=== PATIENT | male | born 1985 | race Caucasian/White ===

== ENCOUNTER 2024-06-01 10:34 | Emergency (ER) | payer OTHER, SELFPAY ==
[2024-06-01 10:38] VITALS: BP 130/76; PULSE 109; RESP 14; TEMP 36.6; O2SAT 99; BMI 24.7
--- NOTE | 2024-06-01 11:16 | PC.NURSE ---
Methadone dose confirmed. Clinic stated he was last dose on 05/28 but was given 5 days of take home doses - he should still have 2 bottles left
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
[2024-06-01] MEDS: methADONE HCl 20 MG/2 ML ORAL.CONC 110 MG PO (13:08)
[2024-06-01 13:18] VITALS: BP 130/76; PULSE 109; RESP 14; TEMP 36.6; O2SAT 99
== END 2024-06-01 13:21 | disposition home or self-care (01) ==
PROVIDERS: Emergency Provider Emergency Medicine Emergency Medical Services
DX: Z76.0 Encounter for issue of repeat prescription (principal)
CPT/HCPCS: 99283

== ENCOUNTER 2024-11-05 06:43 | Emergency (ER) | payer OTHER, SELFPAY ==
[2024-11-05 06:46] VITALS: BP 143/81; PULSE 104; RESP 18; TEMP 36.8; O2SAT 100; BMI 20.5
--- OUTSIDE RECORDS SUMMARY | 2024-11-05 07:31 | XMS_ITS | Data Portability ---
Author Organization [place] [facility], , [place] Address [address] [place] [address] Assessment Encounter Date Assessment Date Assessment LastModified by Organization Details LastModified Time 12/03/2019 12/03/2019 34 Y/O PRESENTS SEEKING MAT INTERVENTION FOR OPIATE ABUSE. ADMITS TO USING HEROIN SINCE THE AGE OF 24. RECOVERY INTERVENTIONS HAS BEEN [facility] WITH SUBOXONE. DOSES RANGED 4-8 MG/DAILY. LAST SUBOXONE PRESCRIBED WAS 09/2018. DENIES IN-PATIENT DETOX/REHAB. HAS BEEN USING 10/2018 RELAPSED WITH HEROIN AND INTERMITTENT COCAINE (NASAL) REQUESTS TO OBTAIN RECOVERY, WITH SUBOXONE, AT [facility]. INSTRUCTED R/T CORRECT SELF-ADMIN OF SUBOXONE DISCUSSED PRECIPITATED W/D RISKS, SYMPTOMS, TIME FRAME, AND GRADUAL INDUCTION PROCESS. PATIENT VERBALIZES UNDERSTANDING, INCLUDING 24 HOUR OPIATE ABSTINENCE PRIOR TO SUBOXONE INDUCTION. DENIES OPIATE USE WITHIN THE LAST 24 HOURS. INDUCTION DOS WITH GRADUAL [address] DOS[address] TAKE [address] 12/02 F/U INDUCTION APPMT: 12/03 THE FOLLOWING SUBSTANCES LIST LAST OR CURRENT USE: - SUBOXONE: 09/2018 - HEROIN: 12/01 @ 5P - METHADONE: N/A - COCAINE: / - THC: occasional - BENZO: RARE - ALCOHOL:N/A - SMOKER: 1 PPD - COWS SCORE: 2 - NARCAN KIT PRESCRIBED - TRIGGERS THAT MOTIVATE TO USE: GETTING SICK, W/D - NO HX OF SUICIDAL IDEATION. CURRENTLY DENIES - HX OF HEP C: DENIES - INCARCERATION: NO Telemedicine Information: This telmed (audio & visual) appointment provided a MAT prescription. Time Start: 03:25 PM; Time End:03:53 PM Provider Location: home; Patient Location: office Telemedicine Consent Given (verbal): Y The patient's current phase of treatment is Induction phase, OUD. Assessment The patient does meet diagnostic criteria for opioid dependence. The patient is responding to treatment with buprenorphine at OBOT level of care at this phase of treatment. The patient does continue to be a good candidate for this level of care. LFT will be repeated per our clinical protocol. Urine drug testing is ordered today with medical necessity as below. Plan Recommendations for buprenorphine dosing today include continue same dose. Visit frequency recommendations include continue current frequency of visits. Treatment plan review or change TODAY includes continue current level of care. Discussed next step requirements for treatment plan based on response to treatment between now and next visit which will include no change. Referrals made today include substance abuse counseling. Prescription monitoring program is reviewed. If reviewed, I have identified agents prescribed to the patient in addition to any issued by our program; the patient is counseled regarding any risk of combining sedating agents. [email or web address] Not available 12/04/2019 08:16:27 12/04/2019 12/04/2019 - PRESENTS FOR INDUCTION F/U. REPORTS HOME INDUCTION TOOK PLACE W/O INCIDENT - PT ADMITS TO FEELING NORMAL WITH SUBOXONE @ 16 MG/DAILY - LOOKING AND FEELING BETTER. - UDS: + COCAINE, FENTANYL---CONFIRM ATION PENDING - NORBUP: PENDING - INITIAL LABS DUE - COUNSELING:REQUEST De GORDON--PT CASE SUBMITTED TO COUNSELING HUB - PLAN: WILL BEGIN WEEKLY MAT ASSESSMENTS, CONT BUP TREATMENTS AND F/U PRIYANKA COUNSELING. Telemedicine Information: This telmed (audio & visual) appointment provided a MAT prescription. Time Start: 04:30 PM; Time End:04:45 PM Provider Location: home; Patient Location: office Telemedicine Consent Given (verbal): Y The patient's current phase of treatment is Induction phase, OUD. Assessment Review of recent UDS and LCMS is unexpected. The patient does meet diagnostic criteria for opioid dependence. The patient is responding to treatment with buprenorphine at OBOT level of care at this phase of treatment. The patient does continue to be a good candidate for this level of care. LFT will be repeated per our clinical protocol. Urine drug testing is ordered today with medical necessity as below. Plan Recommendations for buprenorphine dosing today include continue same dose. Visit frequency recommendations include continue current frequency of visits. Treatment plan review or change TODAY includes continue current level of care. Discussed next step requirements for treatment plan based on response to treatment between now and next visit which will include no change. Referrals made today include substance abuse counseling. Prescription monitoring program is reviewed. If reviewed, I have identified agents prescribed to the patient in addition to any issued by our program; the patient is counseled regarding any risk of combining sedating agents. [email or web address] Not available 12/22/2019 12:19:35 Plan of Treatment Reminders Order Date Submit Date Provider Last Modified By Organization Details Last Modified Time Details Appointments None recorded. Lab CMP, serum or plasma [address], [place], [address], 0 14:56:07 CBC w/ diff [address], [place], [address], 0 14:56:07 gamma-gluta myl transferase (ggt), serum [address], [address] [place], [address], 0 14:56:08 hepatic function panel, serum [address], [address] [place], [address], 0 14:56:08 hepatitis A Ab, total, serum [address], [place], [address], 0 14:56:08 HBsAg (hepatitis B surface Ag), serum [address], [address] [place], [address], 0 14:56:08 PT/INR [address], [address] [place], [address], 0 14:56:08 drug screen, urine 2019 [facility], [address] [place], [address], 0 11:17:43 HIV 1+2 Ab + HIV1 p24 Ag, QL, rapid, immunoassay , serum or plasma or blood 2019 dee [email or web address] Not available 0 14:56:08 hepatitis C Ab, serum 2019 dee [email or web address] Not available 0 14:56:08 Referral None recorded. Procedures None recorded. Surgeries None recorded. Imaging None recorded. Medication Orders None recorded. Patient TargetsNo targets recorded. Patient Instructions Encounter Date Encounter Id Patient Instructions Last Modified By Organization Details Last Modified Time 12/03/2019 [id number] Abstain from opiates for 24 hours unless directed by provider; > If already taking buprenorphine, do not take a dose the day of the induction until you are in the office with your provider; > Comfort medications were recommended. If accepted, please take as prescribed to support your ability to abstain from opiates until your buprenorphine induction; > Keep your buprenorphine RX package closed until you are seen by your provider for induction unless otherwise directed; If you have problems abstaining from opiates, please call the office. As part of your individualized treatment plan and program requirement, you will need to bring your correct prescription bottle and all used and unused medication and counseling verification to each appointment; > Agree to participate in counseling and bring counseling verification to each appointment; > Agree to present for random visits; > Agree to not falsify your urine specimens. [email or web address] Not available 12/03/2019 15:29:42 Education provid ed at today's visit included: Review of patient's individualized treatment plan; Review of program policies: RX, visit, counseling and DATA compliance; Review medication administration technique; Discussion proper care of medication/safety/ lock box; Counseling re: trigger avoidance, relapse prevention and the importance of developing a sober network; Counseling re safe sex and control; Review risk of BZD and BUP, as well as ETOH; Counseling re: Discovery & Drop out prevention in early recovery. Not available 12/03/2019 15:29:42 12/04/2019 [id number] As part of your individualized treatment plan and program requirement, you will need to bring your correct prescription bottle and all used and unused medication and counseling verification to each appointment; > Agree to participate in counseling and bring counseling verification to each appointment; > Agree to present for random visits; > Agree to not falsify your urine specimens. [email or web address] Not available 12/04/2019 16:20:58 Education provid ed at today's visit included: Review of patient's individualized treatment plan; Continue comfort medication for the next few days as needed; Review of common and serious medication side effects; Review of program policies: RX, visit, counseling and DATA compliance; Review medication administration technique; Discussion proper care of medication/safety/ lock box; Counseling re: trigger avoidance, relapse prevention and the importance of developing a sober network; Counseling re safe sex and control; Review risk of BZD and BUP, as well as ETOH; Counseling re: Discovery & Drop out prevention in early recovery. Greater than 50% of today's visit spent face to face counseling and coordinating care. [email or web address] Not available 12/04/2019 16:20:58 Reason for Referral None Reported. Results Created Date Observation Date Name Description Value Unit Range Abnormal Flag Note LastModifiedBy Organization Detail LastModifiedTime 12/03/1912/03/2019 drug scree n, urine amphetamine NEGATI VE 100 Elect louisa velazco d by MISSY DURANT Not Available [facility] [place] [address] [place], [address], 12/04/2019 11:17:43 12/03/1912/03/2019 drug scree n, urine benzodiazepi ne NEGATI VE 100 Not Available [facility], [address], 12/04/2019 11:17:43 12/03/1912/03/2019 drug scree n, urine buprenorphin e NEGATI VE 100 abnormal Not Available [facility] [address] [place], [address], 12/04/2019 11:17:43 12/03/19 20 12/03/2019 drug scree n, urine cannabinoid NEGATI VE 100 Not Available [place] [address] [place], [address], 12/04/2019 11:17:43 12/03/19 20 12/03/2019 drug scree n, urine cocaine metab. POSITI VE 100 abnormal Not Available [place] [address] [place], [address], 12/04/2019 11:17:43 12/03/19 20 12/03/2019 drug scree n, urine methadone NEGATI VE 100 Not Available [place] [address] [place], [address], 12/04/2019 11:17:43 12/03/19 20 12/03/2019 drug scree n, urine opiates POSITI VE 100 abnormal Not Available [place] [address] [place], [address], 12/04/2019 11:17:43 12/03/19 20 12/03/2019 drug scree n, urine oxycodone NEGATI VE 100 Not Available [place] [address] [place], [address], 12/04/2019 11:17:43 12/03/19 20 12/03/2019 drug scree n, urine ethanol <10, <10 mg/dL <10 Not Available [place] [address] [place], [address], 12/04/2019 11:17:43 12/03/19 20 12/03/2019 drug scree n, urine fentanyl POSITI VE 100 high Not Available [place] [address] [place], [address], 12/04/2019 11:17:43 12/03/19 20 12/03/2019 drug scree n, urine creatinine 113.6 mg/dL >20 Not Available [place] [address] [place], [address], 12/04/2019 11:17:43 12/03/19 20 12/03/2019 drug scree n, urine specific gravity 1.013 1.003- 1.035 Not Available [facility] [address] [place] [place], [address], 12/04/2019 11:17:43 12/03/19 20 12/03/2019 drug scree n, urine pH 9.50 4.5-9. 0 high Not Available [place] [address] [address] [place] [place], [address], 12/04/2019 11:17:43 12/03/19 20 12/03/2019 drug confi rmati on, urine 6mam 0, N/F NG/mL 10 Alvaro velazco d by MISSY DURANT Not Available [facility] [place], [address], 12/05/2019 13:35:04 12/03/19 20 12/03/2019 drug confi rmati on, urine clonazepam 0, N/F NG/mL 25 Not Available [facility] [place], [address], 12/05/2019 13:35:04 12/03/19 20 12/03/2019 drug confi rmati on, urine alprazolam 0, N/F NG/mL 25 Not Available [facility] [address] [place], [address], 12/05/2019 13:35:04 12/03/19 20 12/03/2019 drug confi rmati on, urine ampehetamine 0, N/F NG/mL 250 Not Available [facility] [address] [place], [address], 12/05/2019 13:35:04 12/03/19 20 12/03/2019 drug confi rmati on, urine benzoylecgon ine >2,000 , >2,000 NG/mL 100 panic high Not Available [facility] [address] [place], [address], 12/05/2019 13:35:04 12/03/19 20 12/03/2019 drug confi rmati on, urine buprenorphin e N/F NG/mL 20 Not Available [facility] 12 [place], [address], 12/05/2019 13:35:04 12/03/19 20 12/03/2019 drug confi rmati on, urine codeine 0, N/F NG/mL 50 Not Available [facility] 12 [place], [address], 12/05/2019 13:35:04 12/03/19 20 12/03/2019 drug confi rmati on, urine diazepam 0, N/F NG/mL 50 Not Available [facility] 12 [place], [address], 12/05/2019 13:35:04 12/03/19 20 12/03/2019 drug confi rmati on, urine methadone metab 0, N/F NG/mL 100 Not Available [facility] [address] [place], [address], 12/05/2019 13:35:04 12/03/19 20 12/03/2019 drug confi rmati on, urine fentanyl 21 NG/mL 20 high Not Available [facility] 12 [place], [address], 12/05/2019 13:35:04 12/03/19 20 12/03/2019 drug confi rmati on, urine hydrocodone 0, N/F NG/mL 50 Not Available [facility] [address] [place], [address], 12/05/2019 13:35:04 12/03/19 20 12/03/2019 drug confi rmati on, urine hydromorphon e 0, N/F NG/mL 50 Not Available [facility] [address] [place], [address], 12/05/2019 13:35:04 12/03/19 20 12/03/2019 drug confi rmati on, urine lorazepam 80 NG/mL 50 high Not Available [facility] [address] [place], [address], 12/05/2019 13:35:04 12/03/19 20 12/03/2019 drug confi rmati on, urine mda 0, N/F NG/mL 250 Not Available [facility] 12 [place], [address], 12/05/2019 13:35:04 12/03/19 20 12/03/2019 drug confi rmati on, urine methadone 0, N/F NG/mL 250 Not Available [facility] [address] [place], [address], 12/05/2019 13:35:04 12/03/19 20 12/03/2019 drug confi rmati on, urine methamphetam ine 0, N/F NG/mL 250 Not Available [facility] 12 [place], [address], 12/05/2019 13:35:04 12/03/19 20 12/03/2019 drug confi rmati on, urine morphine 325 NG/mL 50 high Not Available [facility] 12 [place], [address], 12/05/2019 13:35:04 12/03/19 20 12/03/2019 drug confi rmati on, urine norbuprenorp [place] N/F NG/mL 50 Not Available [facility] [address] [place], [address], 12/05/2019 13:35:04 12/03/19 20 12/03/2019 drug confi rmati on, urine nordiazepam 0, N/F NG/mL 50 Not Available [facility] [address] [place], [address], 12/05/2019 13:35:04 12/03/19 20 12/03/2019 drug confi rmati on, urine norfentanyl 976 NG/mL 20 high Not Available [facility] [address] [place] [place], [address], 12/05/2019 13:35:04 12/03/19 20 12/03/2019 drug confi rmati on, urine norhydrocodo ne 0, N/F NG/mL 100 Not Available [facility] [address] [place] [place], [address], 12/05/2019 13:35:04 12/03/19 20 12/03/2019 drug confi rmati on, urine normeperidin e 0, N/F NG/mL 100 Not Available [place] [address] [place], [address], 12/05/2019 13:35:04 12/03/19 20 12/03/2019 drug confi rmati on, urine noroxycodone 0, N/F NG/mL 50 Not Available [facility] 12 [place], [address], 12/05/2019 13:35:04 12/03/19 20 12/03/2019 drug confi rmati on, urine oxycodone 0, N/F NG/mL 25 Not Available [facility] [address] [place], [address], 12/05/2019 13:35:04 12/03/19 20 12/03/2019 drug confi rmati on, urine oxymorphone 0, N/F NG/mL 100 Not Available [facility] 12 [place], [address], 12/05/2019 13:35:04 12/03/19 20 12/03/2019 drug confi rmati on, urine pcp 0, N/F NG/mL 50 Not Available [facility] [address] [place], [address], 12/05/2019 13:35:04 12/03/19 20 12/03/2019 drug confi rmati on, urine temazepam 0, N/F NG/mL 50 Not Available [facility] [address] [place], [address], 12/05/2019 13:35:04 12/03/19 20 12/03/2019 drug confi rmati on, urine tramadol 0, N/F NG/mL 100 Not Available [facility] [place] [address] [place], [address], 12/05/2019 13:35:04 12/03/19 20 12/03/2019 drug confi rmati on, urine methylphenid ate 0, N/F NG/mL 50 Not Available [facility] [address] [place], [address], 12/05/2019 13:35:04 Result Notes None recorded. Problems Name Problem SNOMED Code Status Onset Date Resolution Date Notes Provider Name and Address Organization Details Recorded Time Opioid dependence 94527054 Active 020 MISSY DURANT NP [address] [place] [address], [phone], [facility], 0 08:16:45 Heroin dependence 133553102 Active 020 MISSY DURANT NP [address] [place] [address], [address], [facility], 0 08:16:54 Cocaine dependence 50487724 Active 020 MISSY DURANT NP [address] [place] [address], [address], [facility], 0 08:17:04 Fentanyl dependence 412189197 Active 020 MISSY DURANT NP [address] [place] [address], [address], [facility], 0 17:45:02 Problem Notes None recorded. Procedures Surgical History Date Name Laterality Status Provider Name and Address Organization Details Recorded Time 12/03/2019 21389, G0480, G0481 completed Marina Colon [facility], 12/03/2019 15:29:42 Imaging Results None recorded. Procedure Notes None recorded. Medical Equipment None Reported. Allergies No known drug allergies Medications Name Sig Start Date Stop Date Status Note LastModified by Organization Details LastModified Time Suboxone 8 mg-[address] 2 films every day by sublingual route. active Not Available Not Available No t Available Narcan 4 mg/actuation nasal spray Take 1 spray by nasal route as directed. active Not Available Not Available No t Available Vitals Date Recorded Body temperature Provider Name a nd Address Organization Details Last Updated DateTime 12/04/2019 98.1 [degF] Brett Johns [facility] [employer] [facility], 12/04/2019 16:21:09 Social History Question Answer Notes LastModified by Organizat ion Details LastModified Time Tobacco Smoking Status Current Every Day Smoker MISSY DURANT NP [address] [place], [address], [facility] [employer] [facility], 12/04/2019 08:21:40 How Much Tobacco Do You Smoke? 1 PPD [email or web address] Information not available 12/04/2019 Sex: Unknown Functional Status None recorded. Mental Status None recorded. Family History Relationship Description Onset Age of this Age Resolved Age Notes LastModified by Organization Details LastModified Time Father No current problems or disability [email or web address] Not available 12/03 08:21:10 Father Addiction [email or web address] Not availabl e 12/04/2019 08:21:33 Mother No current problems or disability [email or web address] Not available 12/03 08:21:10 Medical History No medical history recorded. Past Encounters Encounter ID Performer Location Encounter Start Date Encounter Closed Date Diagnosis/Indication Diagnosis SNOMED-CT Code Diagnosis ICD10 Code Diagnosis Note [id number] MISSY DURANT NP [facility] [address] [place] [address] 12/03/2019 15:27:33 12/03/2019 16:42:36 Opioid dependence 13963157 F11.20 Heroin dependence 961974 003 F11.20 Cocaine dependence 68325 009 F14.20 [id number] MISSY DURANT NP [facility] [address] [place] [address] 12/04/2019 16:20:33 12/04/2019 16:59:29 Opioid dependence 42216110 F11.20 Cocaine dependence 17426 009 F14.20 Fentanyl dependence 4260 17230 F11.20 Health Concerns Section Related Observation LastModified by Organization Detai ls LastModified Time None Recorded Concern Status LastModified by Organization Details LastModified Time None Recorded Advance Directives Directive None Recorded Payers Encounter Date Sequence Insurance Name Policy Number Policy Nieves Covered Member ID Nieves Member ID Guarantor Name 12/03/2019 1 [facility] (MEDICAID REPLACEMENT - HMO) TIM Maradiaga [id number] Jose Miguel Maradiaga 12/04/2019 1 [facility] (MEDICAID REPLACEMENT - HMO) TIM Maradiaga [id number] Jose Miguel Maradiaga Notes Date Note Type Note Provider Name and Address Organization Details Recorded Time 12/03/2019 text/html Initial MAT HPI The patient presents today seeking outpatient treatment for {{opiate* alcohol bot h opiate and alcohol}} dependence. Current readiness for treatment/stage of change is described as {{pre-contemplation c ontemplation preparat ion* action maintenan ce}}. Onset of substance dependence, beginning with first substance used and all illicit and/or prescription abuse to date and including current substances: {{24 y/o - current# CLICK TO FREE TEXT}}. Current or most recent route of primary substance use is described as {{oral intranasal* sk in popping intravenous s moking}}. The patient {{denies* reports}} a history of IV drug use. The patient {{denies* reports}} a history of overdose. The patient {{denies reports*}} a history of witnessing an overdose. The patient {{denies* reports}} having ever used or been prescribed Methadone. The patient {{denies reports*}} having ever used or been prescribed Buprenorphine. The patient's last exposure to Buprenorphine was 09/2018.. Attempts to stop including past and/or most recent: > Inpatient detox: {{Y N*}} > Residential and/or Sober Housing: {{Y N*}} > Intensive Outpatient Program: {{Y N*}} > Partial Hospitalization Program: {{Y N*}} > Medication assisted treatment program(s): {{Y* N}} Most successful program to date has been {{none methadone/OTP inpatient residential sober living buprenorphine* bup+residential Roz trol Vivitrol+residen tial incarceration}}. The patient describes individual goals for substance dependence treatment as {{Put life and finances back in order.# CLICK TO FREE TEXT}}. MISSY DURANT, RUBEN [address] [place], [address], [facility], 12/04/2019 08:18:24 12/04/2019 text/html The patient repo rts {{doing better* doing well struggling}} since last visit and {{denies* reports}} slip or relapse. MAT HPI They {{deny* report}} cravings for opiates and {{deny* report}} opiates use since their last visit. They {{deny* report}} cravings for other substances and {{deny* report}} other substance use since their last visit. Triggers {{are* are not}} identified and any alleviating factors to identified triggers are discussed. Withdrawal symptoms {{are are not*}} present. MAT Administration and Program Adherence The patient {{has* has not}} met with their buprenorphine prescriber within the past 6 months. The patient {{is* is not}} compliant with prescribed buprenorphine dose and {{can* can not}} describe proper medication administration and technique. The patient {{denies* reports}} side effects from the medication. The patient {{has has not*}} attended counseling since their last MAT visit and {{is* is not}} in program compliance. There {{are* are not}} other support systems in place for this patient. Markers of recovery include:{{NO OPIOID CRAVINGS OR USE.# CLICK TO FREE TEXT OR DELETE LINE}} Wrapper/Package Count The patient {{reports* denies}} taking {{part full* no}} dose today. The patient picked up their most recent prescription on {{DATE 12/03/2019}}. > Number of unused (full) medication balance is: {{0# }}. > Number of empty wrappers/packages is: {{2# }}. The medication count {{is* is not}} accurate. There {{is is no*}} concern for diversion based on {{UDS medication count* bup/norbup therapeutic level trend drug screen and med count}}. MISSY DURANT, RUBEN [address] [place] [address], [phone], [facility], 12/22/2019 12:19:47
--- OUTSIDE RECORDS SUMMARY | 2024-11-05 07:31 | XMS_ITS | Clinical Summary ---
Author Organization [facility] ity Address [address] [place] [address] Care Team Providers Care Intelligence Applications Name Role Phone Unavailable Primary Care Provider Unavailabl e Social History Tobacco Use Types Packs/Day Years Used Date Smoking Tobacco: Never Assessed Sex and Gender Information Value Date Recorded Sex Assigned at Not on file Legal Sex Male 6:38 AM EST Gender Identity Not on file Sexual Orientation Not on file Last Filed Vital Signs Vital Sign Reading Time Taken Comments Blood Pressure 132/76 10/27/2022 1:02 PM EDT Sitting L Arm Pulse 103 10/27/2022 1:02 PM EDT Temperature - - Respiratory Rate - - Oxygen Saturation - - Inhaled Oxygen Concentration - - Weight 103 kg (227 lb 3.2 oz) 1:02 PM EDT Height 175.3 cm (5' 9 ) 10/27/2022 1:02 PM EDT Body Mass Index 33.55 10/27/2022 1:02 PM EDT Plan of Treatment Health Maintenance Due Date Last Done Comments DTaP,Tdap,and Td Vaccines (1 - Tdap) 2003 Hepatitis B Vaccines (1 of 3 - 19+ 3-dose series) 2003 Cholesterol Screening (Lipid Panel) 08/29/2023 Depression Screening 08/29/2023 HIV Screening 08/29/2023 Hepatitis C Screening 08/29/2023 Social Influencers of Health Screening 08/29/2023 COVID-19 Vaccine ( - 2023-2 5 season) 2024 Influenza Vaccine (#1) 2024 HIB Vaccines Aged Out No longer eligi ble based on patient's age to complete this topic HPV Vaccines Aged Out No longer eligi ble based on patient's age to complete this topic Hepatitis A Vaccines Aged Out No long er eligible based on patient's age to complete this topic IPV Vaccines Aged Out No longer eligi ble based on patient's age to complete this topic MMR Vaccines Aged Out No longer eligi ble based on patient's age to complete this topic Meningococcal ACWY Vaccine Aged Out N o longer eligible based on patient's age to complete this topic Meningococcal B Vaccine Aged Out No l onger eligible based on patient's age to complete this topic Pneumococcal Vaccine: Pediat rics (0 to 5 Years) and At-Risk Patients (6 to 64 Years) Aged Out No longer eligible b ased on patient's age to complete this topic RSV Immunization Patients Un ramon 20 months Aged Out No longer eligible b ased on patient's age to complete this topic Varicella Vaccines Aged Out No longer eligible based on patient's age to complete this topic
--- NOTE | 2024-11-05 07:54 | ED_ITS ---
HPI - General Adult General Chief complaint: General Medical Stated complaint: looking for a methadone dose Time Seen by Provider: 11/05/24 07:48 Source: patient Mode of arrival: ambulatory Limitations: no limitations History of Present Illness HPI narrative: This is a 39 years old male presented to the emergency department requesting to be dose for the methadone, he stated that the methadone bottle broke and he was told to the methadone clinic to come to the ED for dosing. He denies any symptoms no chest pain or shortness of breath no fever Onset (ago): hour(s) (4) Radiation: non-radiation Severity: mild Pain Consistency: constant Relieving factors: none Exacerbating factors: none Associated symptoms: denies other symptoms Related Data Home Medications ?Medication ?Instructions ?Recorded ?Confirmed methadone 10 mg/5 mL oral solution 135 mg PO DAILY 11/05/24 11/05/24 Allergies Allergy/AdvReac Type Severity Reaction Status Date / Time coconut Allergy Hives Verified 11/05/24 06:49 Review of Systems Review of Systems: Yes all other systems are reviewed and are negative ENT: Reports system reviewed and no additional complaints, except as documented Respiratory: Respiratory: Reports no additional respiratory complaints Gastrointestinal: Gastrointestinal: Reports no additional gastrointestinal complaints [facility] Past Medical History Attestation statement: The following information was validated with the patient. [facility] Narrative: Opiate use disorder Social History Social History Advance Directives: No Advance Directives Information Provided: Yes Do you have a plan to hurt others: No Plan Physical Exam ED Vital Signs: Vital Signs - 24 hr 11/05/24 06:46 Temperature 98.3 F Pulse Rate 104 H Respiratory Rate 18 Blood Pressure 143/81 H Pulse Oximetry 100 Oxygen Delivery Method Room Air BMI result Body Mass Index 20.5 He looks well is not toxic-appearing Const General: cooperative, comfortable and no acute distress Nutritional Appearance: average body habitus Orientation/consciousness: patient oriented x3 Limitations: no limitations HENMT Head: Yes normal to inspection General nose exam: Normal external nose present Mouth: Normal oral and palatal mucosa present Neck Neck: Yes normal visual inspection and Yes full ROM Chest Chest palpation & inspection: normal inspection of the chest Resp Effort & Inspection: normal respiratory effort Cardio Jugular venous distension: no JVD Rate: regular rate Rhythm: regular rhythm GI Inspection: Yes normal to inspection Palpation (GI): Soft to palpation, not firm and nontender Skin General skin exam: no rashes or lesions noted and elasticity normal Neuro General: patient oriented x3 Cranial nerves: Yes CN's II-XII intact bilaterally Cognition (Neuro): normal cognition Gait exam (Neuro): Normal gait present Medications Administered Discontinued Medications Generic Name Dose Route Start Last Admin Trade Name Freq PRN Reason Stop Dose Admin Methadone HCl 135 mg 11/05/24 07:53 11/05/24 08:41 Methadone Hcl 20 Mg/2 Ml Oral.Conc PO 11/05/24 07:54 135 mg ONCE ONE Administration Medical Decision Making Medical Decision Making [facility] Narrative: Patient is here for methadone dosing we will check with the methadone clinic Differential Diagnosis Differential Diagnoses: The differential diagnosis associated with the presentation includes Substance abuse/opiate use disorder Admission/Observation Consideration of admission/observation: Escalation of care including admission/observation considered Discharge Plan Discharge Clinical Impression: Opioid use disorder, Encounter for medication administration Patient Disposition: Home, Self-Care Instructions: Medicine Refill (ED) Prescriptions: No Action methadone 10 mg/5 mL Solution 135 mg PO DAILY Print Language: Arabic
[2024-11-05 08:00] VITALS: BP 128/88; PULSE 95; RESP 16; TEMP 37.1; O2SAT 100
--- NOTE | 2024-11-05 08:04 | HE.PHANOTE ---
Re MEthadone Pt received 135mg from [facility] on 10/30/24 with 6 take home bottles.
[2024-11-05] MEDS: methADONE HCl 20 MG/2 ML ORAL.CONC 135 MG PO (08:41)
[2024-11-05 08:57] VITALS: BP 143/81; PULSE 104; RESP 18; TEMP 36.8; O2SAT 100
== END 2024-11-05 08:57 | disposition home or self-care (01) ==
PROVIDERS: Emergency Provider Emergency Medicine
DX: F11.10 Opioid abuse, uncomplicated (principal); Z79.899 Other long term (current) drug therapy
CPT/HCPCS: 99282; 99283

== ENCOUNTER 2024-12-10 02:00 | Emergency (ER) | payer OTHER, SELFPAY ==
[2024-12-10 02:04] VITALS: BP 127/79; PULSE 107; RESP 20; TEMP 36.7; O2SAT 98; BMI 19.9
--- NOTE | 2024-12-10 03:38 | ED.GENADULT ---
HPI - General Adult General Chief complaint: General Medical Stated complaint: medication withdrawal Time Seen by Provider: 12/10/24 03:38 Source: patient Mode of arrival: ambulatory Limitations: no limitations History of Present Illness ED Provider: DR. Garcia HPI narrative: 39-year-old male on methadone 135 mg daily, patient lost his methadone bottle did not take the methadone since Sunday feeling anxious, abdominal discomfort, runny nose, which is a typical signs for patient withdrawal. No CP, no SOB, no diarrhea, no nausea, no vomiting. Related Data Home Medications ?Medication ?Instructions ?Recorded ?Confirmed methadone 10 mg/5 mL oral solution 135 mg PO DAILY 11/05/24 11/05/24 Allergies Allergy/AdvReac Type Severity Reaction Status Date / Time coconut Allergy Hives Verified 12/10/24 02:07 Review of Systems Review of Systems: All other systems are reviewed and are negative Constitutional: Reports as per HPI and Reports no additional constitutional complaints Eyes: Reports as per HPI and Reports no additional eye complaints Reports system reviewed and no additional complaints, except as documented Cardiovascular: Reports as per HPI and Reports no additional cardiovascular complaints Respiratory: Reports as per HPI and Reports no additional respiratory complaints Gastrointestinal: Reports as per HPI and Reports no additional gastrointestinal complaints Genitourinary: Reports no additional female genitourinary complaints Musculoskeletal: Reports no additional musculoskeletal complaints Skin/Breast: Reports system reviewed and no additional complaints, except as docu Psychiatric: Reports no additional psychiatric complaints Endocrine: Reports no additional endocrine complaints Hematologic/Lymphatic: Reports no additional hematologic/lymphatic complaints Allergic/Immunologic: Reports no additional allergic/immunologic complaints Reports system reviewed and no additional complaints, except as documented and Reports Abnormal speech present [facility] Social History Social History Advance Directives: No Advance Directives Information Provided: Yes Do you have a plan to hurt others: No Plan Physical Exam ED Vital Signs: Vital Signs - 24 hr 12/10/24 02:04 Temperature 98.1 F Pulse Rate 107 H Respiratory Rate 20 Blood Pressure 127/79 Pulse Oximetry 98 Oxygen Delivery Method Room Air BMI result Body Mass Index 19.9 Vital signs have been reviewed and appear to be correct. Blood pressure elevated. Heart rate elevated. Respiratory rate normal. Temperature normal. Oxygen saturation normal. Appearance: Alert. Oriented X3. No acute distress. Head: Normal external exam. Normocephalic. Atraumatic. No Stokes signs noted. No raccoon eyes noted Eyes: PERRLA. EOMI. Conjunctiva and sclera normal. Eyelids normal. ENT: TM's Normal. Pharynx normal. Uvula midline. Moist mucous membranes. No trismus noted. No drooling noted. No muffled voice noted. Neck: Normal inspection. Neck supple. FROM. No adenopathy. Thyroid Normal. No meningeal signs. No neck mass noted. CVS: Normal heart rate and rhythm. Heart sound normal. No murmurs noted. Pulses normal throughout. Respiratory: No respiratory distress. Painless inspiration. Breath sounds normal. No wheezes/rales/rhonchi noted. Chest nontender. No accessory muscle usage noted or decreased air movement noted. Abdomen: Soft and nontender. Bowel sounds normal in all 4 quadrants. No distention noted. No organomegaly noted. No visible injury noted. Back: No CVA tenderness. Full range of motion noted. Skin: Skin warm and dry. Normal skin color. Normal skin turgor. No rashes/lesions/lacerations noted. Extremities: No lower extremity edema. Extremities exhibit normal range of motion. Extremities nontender. Neuro: Oriented X 3. Cranial nerve exam: II-XII are grossly intact No motor deficit. No sensory deficit. Reflexes normal. Course Reevaluation(s) Reevaluation #1: Needs his methadone dose, will try to verify the exact dose from the methadone clinic. Time: 03:48 Medical Decision Making Differential Diagnosis Differential Diagnoses: The differential diagnosis associated with the presentation includes (Methadone withdrawal) Admission/Observation Consideration of admission/observation: Escalation of care including admission/observation considered Discharge Plan Discharge Clinical Impression: Methadone withdrawal Patient Disposition: Home, Self-Care Instructions: Opioid Withdrawal (ED) Prescriptions: No Action methadone 10 mg/5 mL Solution 135 mg PO DAILY Referrals: Elva Alvarez MD [Primary Care Provider] - Print Language: Serbian
--- NOTE | 2024-12-10 04:14 | PC.NURSE ---
This RN called to [facility] Methadone dose verification line, spoke to ORLANDO Nguyễn-per Delma, patient was seen at [facility] Methadone Clinic on 12/04/2024 and was sent home with 6 bottles of Methadone 135 mg.
[2024-12-10 04:27] VITALS: BP 103/69; PULSE 99; RESP 16; TEMP 36.9; O2SAT 100
[2024-12-10] MEDS: methADONE HCl 20 MG/2 ML ORAL.CONC 135 MG PO (05:22)
[2024-12-10 05:34] VITALS: BP 129/69; PULSE 104; RESP 16; TEMP 36.5; O2SAT 100
== END 2024-12-10 05:37 | disposition home or self-care (01) ==
PROVIDERS: Emergency Provider Emergency Medicine; PCP Family Medicine
DX: F11.23 Opioid dependence with withdrawal (principal); F41.9 Anxiety disorder, unspecified; R10.2 Pelvic and perineal pain; R09.89 Other specified symptoms and signs involving the circulatory and respiratory systems; Z79.899 Other long term (current) drug therapy
CPT/HCPCS: 99283; 99284

== ENCOUNTER 2024-12-15 10:04 | Emergency (ER) | payer OTHER, SELFPAY ==
--- OUTSIDE RECORDS SUMMARY | 2024-12-15 11:54 | XMS_ITS | Clinical Summary ---
[facility] [address] [place] [address] Care Team Providers Care Nut Processing Supervisor Name Role Phone Unavailable Primary Care Provider [...] - 2023-2 5 season) 2024 Influenza Vaccine (Season Ended) 2025 HIB Vaccines Aged Out No longer eligi [...]
--- OUTSIDE RECORDS SUMMARY | 2024-12-15 11:54 | XMS_ITS | Encounter Summary ---
Author Organization [employer] Address [address] [place] [address] Care Team Providers Care Laboratory Veterinarian Name Role Phone Unavailable Primary Care Provider Unavailabl e Encounter Details Date Type Department Care Team (Latest Contact Info) Description 12/15/2024 Travel Social History Tobacco Use Types Packs/Day Years Used Date Smoking Tobacco: Never Assessed Sex and Gender Information Value Date Recorded Sex Assigned at Male 12/15/2024 9:37 AM EDT Legal Sex Male 1:14 PM EST Gender Identity Male 12/15/2024 9:37 AM EDT Sexual Orientation Choose not to disclose 2024 9:37 AM EDT documented as of this encounter Plan of Treatment Not on file documented as of this encounter Visit Diagnoses Not on filedocumented in this encounter
--- OUTSIDE RECORDS SUMMARY | 2024-12-15 11:54 | XMS_ITS | Clinical Summary ---
Author Organization [employer] Address [address] [place] [address] Care Team Providers Care Sorter Packer Name Role Phone Unavailable Primary Care Provider Unavailabl e Encounters Date Type Department Care Team Description 12/15/2024 Travel 10/29/2024 Population Health Risk Score [facility] (C3) Department [address] [facility] [facility] [address] [place] [id number] Provider, Population Health Generic from Last 3 Months Social History Tobacco Use Types Packs/Day Years Used Date Smoking Tobacco: Never Assessed Sex and Gender Information Value Date Recorded Sex Assigned at Male 12/15/2024 9:37 AM EDT Legal Sex Male 1:14 PM EST Gender Identity Male 12/15/2024 9:37 AM EDT Sexual Orientation Choose not to disclose 2024 9:37 AM EDT Plan of Treatment Health Maintenance Due Date Last Done Comments Depression Screening 1984 HIV Screening 1984 Lipid Panel 1984 SDOH Screening 1984 Disability Screening 1984 Alcohol/Substance Use Screening 1996 Tobacco Screening 1996 Family Planning (PISQ) 1999 Hepatitis C Screening 2002 DTaP/Tdap/Td Vaccines (1 - Tdap) 2003 Hepatitis B Vaccines (1 of 3 - 19+ 3-dose series) 2003 COVID-19 Vaccine ( - 2023-2 5 season) 2024 Influenza Vaccine (#1) 2024 Zoster Vaccines (1 of 2) 2034 RSV Patients and Pa tients Aged 60 years or older (1 - 1-dose 75+ series) 2059 HIB Vaccines Aged Out No longer eligi [...] patient's age to complete this topic Meningococcal Vaccine Aged Out No kenneth kaitlynn eligible based on patient's age to complete this topic Pneumococcal Vaccine: Pediat rics (0 to 5 Years) and At-Risk Patients (6 to 49) Years) Aged Out No longer eligible b ased on patient's age to complete this topic RSV under 20 months Aged Out No longe r eligible based on patient's age to complete this topic Rotavirus Vaccines Aged Out No longer eligible based on patient's age to complete this topic Insurance [facility] STANDARD
== END 2024-12-15 11:29 | disposition left against medical advice (07) ==
PROVIDERS: Emergency Provider Emergency Medicine
DX: M25.561 Pain in right knee (principal); Z53.21 Procedure and treatment not carried out due to patient leaving prior to being seen by health care provider

== ENCOUNTER 2025-03-06 18:13 | Emergency (ER) | payer OTHER, SELFPAY ==
--- NOTE | 2025-03-06 18:37 | ED.GENADULT ---
HPI - General Adult General Stated complaint: OD
[2025-03-06 19:16] VITALS: BP 129/83; PULSE 69; RESP 22; TEMP 36.8; O2SAT 96; BMI 26.3
[2025-03-06 19:31] VITALS: BP 128/93; PULSE 69; TEMP 36.9; O2SAT 99
--- NOTE | 2025-03-06 21:59 | ED_ITS ---
HPI - Psych General Chief Complaint: ETOH/Substance Use Stated Complaint: OD Time Seen by Provider: 03/06/25 19:20 Source: patient Mode of arrival: EMS Limitations: altered mental status History of Present Illness ED Provider: HPI Narrative: Patient's history of substance abuse brought by EMS for unresponsiveness received Narcan intranasally by a bystander patient has refused any substance abuse sleeping after arrival with stable vitals denies SI or HI walked to the bathroom Related Data Allergies Allergy/AdvReac Type Severity Reaction Status Date / Time No Known Allergies Allergy Verified 03/06/25 19:29 Review of Systems Review of Systems: Yes all other systems are reviewed and are negative [facility] Social History Social History Use of substances other than those prescribed or required for medical reasons: Yes Substance Use Type: Crack/Cocaine and Opiates Advance Directives: No Advance Directives Information Provided: No Physical Exam Vital Signs: Vital Signs: Last Vital Signs Temp 98.5 F 03/06/25 19:31 Pulse 69 03/06/25 19:31 Resp 22 H 03/06/25 19:16 BP 128/93 H 03/06/25 19:31 Pulse Ox 99 03/06/25 19:31 O2 Del Method Room Air 03/06/25 19:31 BMI result Body Mass Index 26.3 Appearance: Sleeping easily arousable. No acute distress. Eyes: PERRLA, No Nystagmus ENT: Pharynx normal. Oral Mucosa moist Neck: Normal inspection. Neck supple. CVS: Normal heart rate and rhythm. Pulses normal. Respiratory: No respiratory distress. Equal air entry bilateral, no wheezing/rales/rhonchi Abdomen: Soft and nontender. Bowel sounds are present, no mass palpable, no CVA tenderness Skin: Skin warm and dry. Normal skin color. Normal skin turgor. Extremities: No lower extremity edema. No calf tenderness Neuro: Sleeping. No motor deficit. No sensory deficit.No cerebellar signs , cranial nerves II-XII intact Medical Decision Making Medical Decision Making [facility] Narrative: Theron Michelle MD 03/06/25 [id number] Patient's polysubstance abuse on methadone fully awake at this time refusing any help does not want Narcan to take home will discharge patient home Lab Data [facility] Lab Attestation statement: I reviewed the patient's lab results. Labs: Lab Results 03/06/25 Range/Units 22:09 Urine Opiates Screen POSITIVE H (Not Detect) Ur Buprenorphine Scrn Not Detected (Not Detect) ng/mL Ur Oxycodone Screen Not Detected (Not Detect) ng/mL Urine Methadone Screen Positive H (Not Detect) ng/mL Urine Fentanyl Screen POSITIVE H (Not Detect) Ur Barbiturates Screen Not Detected (Not Detect) Ur Phencyclidine Scrn Not Detected (Not Detect) Ur Amphetamines Screen Not Detected (Not Detect) U Benzodiazepines Scrn Not Detected (Not Detect) Urine Cocaine Screen POSITIVE H (Not Detect) U Marijuana (THC) Screen Not Detected (Not Detect) Discharge Plan Discharge Clinical Impression: Opiate abuse, continuous, Cocaine abuse Patient Disposition: Home, Self-Care Instructions: Cocaine Use Disorder (ED), Opioid Use Disorder (ED) Additional Instructions: Stop using drugs Follow up with detox Print Language: Taiwanese
[2025-03-06 22:24] LABS: Cannabinoid Screen Urine Not Detected (Not Detect)
[2025-03-07 00:15] VITALS: BP 000/00; PULSE 0; RESP 0; TEMP -17.7; TEMP 0; O2SAT 0
== END 2025-03-07 00:17 | disposition home or self-care (01) ==
PROVIDERS: Emergency Provider Internal Medicine
DX: F14.10 Cocaine abuse, uncomplicated (principal); F11.10 Opioid abuse, uncomplicated; R40.4 Transient alteration of awareness
CPT/HCPCS: 80307; 99284